=== PATIENT | male | born 1955 | race Two or more races ===

== ENCOUNTER → 2024-08-18 | Emergency (ER) | payer OTHER ==
[~2024-08-18] VITALS: Ht 177.8 cm; Wt 110.7 kg
[~2024-08-18] MED LIST: ACETAMINOPHEN 500 MG GEL..CAP PO ONE; LIDOCAINE HCL 1% 10ML VIAL PERCUT ONE; METFORMIN HCL500 MG; TETANUS & DIPHTHERIA TOX,ADULT 0.5 ML VIAL IM ONE
== END | disposition home or self-care (01) ==
LOC: ER 16:04
DX: S01.112A Laceration without foreign body of left eyelid and periocular area, initial encounter (principal); W19.XXXA Unspecified fall, initial encounter; Y93.89 Activity, other specified; Y92.59 Other trade areas as the place of occurrence of the external cause; Y99.8 Other external cause status; I10 Essential (primary) hypertension; E11.9 Type 2 diabetes mellitus without complications; Z79.84 Long term (current) use of oral hypoglycemic drugs; Z88.1 Allergy status to other antibiotic agents; Z88.2 Allergy status to sulfonamides
CPT/HCPCS: 12013; 71111; 90471; 90714; 99283; J1670